=== PATIENT | male | born 1940 | race African-American/Black ===

== ENCOUNTER 2017-04-19 07:02 | Day surgery (SDC) | payer OTHER ==
[~2017-04-19] VITALS: Ht 180.3 cm; Wt 86.2 kg
[2017-04-19] MEDS ORDERED: GENTAMICIN/NS IRRIGATION 500 ML IR ONE (08:01)
[2017-04-19] MEDS ORDERED: ALLO300T2 PO (08:14)
[2017-04-19] MEDS ORDERED: APIX2.5T PO (08:14)
[2017-04-19] MEDS ORDERED: AZEL137S7 NS (08:14)
[2017-04-19] MEDS ORDERED: ASPI-1159 PO (08:14)
[2017-04-19] MEDS ORDERED: HYDR-4134 PO (08:14)
[2017-04-19] MEDS ORDERED: METF850T2 PO (08:14)
[2017-04-19] MEDS ORDERED: FURO80TA3 PO (08:14)
[2017-04-19] MEDS ORDERED: ATROV IH (08:14)
[2017-04-19] MEDS ORDERED: MONT10TA24 PO (08:14)
[2017-04-19] MEDS ORDERED: MIDAZOLAM HCL 2 MG/2 ML VIAL ONE (09:25)
[2017-04-19] MEDS ORDERED: FENTANYL CITRATE/PF 50MCG/ML 2ML VIAL ONE (09:25)
[2017-04-19] MEDS ORDERED: LIDOCAINE HCL 1% 20ML VIAL (Pyxis) INJ ONE (09:47)
[2017-04-19] MEDS ORDERED: DEXAMETHASONE 4MG/ML 1ML VIAL ONE (09:47)
[2017-04-19] MEDS ORDERED: PROPOFOL 200MG/20ML VIAL IV ONE (09:47)
[2017-04-19] MEDS ORDERED: CEFAZOLIN SODIUM 1000MG/VIAL ONE (09:48)
[2017-04-19] MEDS ORDERED: SODIUM CHLORIDE 0.9% 10ML VIAL ONE (09:48)
[2017-04-19] MEDS ORDERED: ONDANSETRON HCL 4MG/2ML VIAL ONE (09:48)
[2017-04-19] MEDS ORDERED: GENTAMICIN SULF 40MG/ML 2ML VIAL ONE (09:54)
== END 2017-04-19 14:30 | disposition home or self-care (01) ==
LOC: CCL 07:02
PROVIDERS: ATTEND Thoracic Surgery (Cardiothoracic Vascular Surgery)
DX: Z45.010 Encounter for checking and testing of cardiac pacemaker pulse generator [battery] (principal); I48.91 Unspecified atrial fibrillation; M10.9 Gout, unspecified; E11.9 Type 2 diabetes mellitus without complications; I10 Essential (primary) hypertension; E78.4 Other hyperlipidemia; Z86.73 Personal history of transient ischemic attack (TIA), and cerebral infarction without residual deficits; Z79.899 Other long term (current) drug therapy
CPT/HCPCS: 33222; 33227; 82962; A4216; C1786; J0690; J1100; J2250; J2405; J3010; J3490; J7040; 33228; J1580; J2704

== ENCOUNTER 2017-06-23 05:39 | Day surgery (SDC) | payer OTHER ==
[~2017-06-23] VITALS: Ht 181.6 cm; Wt 83.9 kg
[~2017-06-23 05:39] MED LIST: ALLO300T2 PO; APIX2.5T PO; ASPI-1159 PO; ATROV IH; AZEL137S7 NS; FURO80TA3 PO; HYDR-4134 PO; METF850T2 PO; MONT10TA24 PO
[2017-06-23] MEDS ORDERED: LACTATED RINGERS 1,000 ML IV SCH (06:25)
[2017-06-23] MEDS ORDERED: BUPIVACAINE HCL 0.5% (5MG/ML) 50ML ONE (06:26)
[2017-06-23] MEDS ORDERED: SKIN ADHESIVE 0.7 GM EA TOP ONE (06:26)
[2017-06-23] MEDS ORDERED: ROCURONIUM BROMIDE 10MG/ML VIAL 5ML IV ONE (07:37)
[2017-06-23] MEDS ORDERED: MEPERIDINE HCL/PF 25MG/ML CPJ IV PRN (08:00)
[2017-06-23] MEDS ORDERED: HYDROMORPHONE HCL/PF 2MG/ML CPJ IV PRN (08:00)
[2017-06-23] MEDS ORDERED: ONDANSETRON HCL 4MG/2ML VIAL IV PRN (08:00)
[2017-06-23] MEDS ORDERED: LABETALOL 5MG/ML SYR 20 MG/4 ML SYRINGE IV PRN (08:00)
[2017-06-23] MEDS ORDERED: DEXAMETHASONE 4MG/ML 1ML VIAL ONE (08:47)
[2017-06-23] MEDS ORDERED: CEFAZOLIN SODIUM 1000MG/VIAL ONE (08:47)
[2017-06-23] MEDS ORDERED: NEOSTIGMINE METHYLSULFATE 1MG/ML 10 ML VIAL ONE (08:50)
[2017-06-23] MEDS ORDERED: GLYCOPYRROLATE 0.2 MG/ML 2ML VIAL ONE ×2 (08:50→08:51)
[2017-06-23] MEDS ORDERED: HEPARIN 1000 UNITS/ML 10ML ONE (08:50)
== END 2017-06-23 11:55 | disposition home or self-care (01) ==
LOC: OR 05:39
PROVIDERS: ATTEND Surgery
DX: K40.90 Unilateral inguinal hernia, without obstruction or gangrene, not specified as recurrent (principal); Z86.73 Personal history of transient ischemic attack (TIA), and cerebral infarction without residual deficits; I48.91 Unspecified atrial fibrillation; I10 Essential (primary) hypertension; E11.9 Type 2 diabetes mellitus without complications; Z79.899 Other long term (current) drug therapy; Z79.82 Long term (current) use of aspirin
CPT/HCPCS: 49650; 82962; C1781; G0168; J0690; J1100; J1644; J2710; J3490; J7120; S2900

== ENCOUNTER 2018-04-04 11:14 | Emergency (ER) | payer OTHER ==
[~2018-04-04] VITALS: Ht 180.3 cm; Wt 86.0 kg
[~2018-04-04 11:14] MED LIST changes: +METF-415 PO; -METF850T2 PO
[2018-04-04] MEDS ORDERED: KETOROLAC 30MG/ML VIAL IV STA (12:05)
[2018-04-04 12:43] LABS: CHLORIDE 107 mEq/L (98-107)
[2018-04-04 12:48] LABS: BASOPHILS % 0.2 % (0.0-2.0); EOSINOPHILS % 0.6 % (0.0-5.0); HEMATOCRIT. 39.7 % (42.0-52.0); HEMOGLOBIN. 13.1 g/dL (14.0-18.0); LYMPHOCYTES % 9.6 % (20.0-50.0); MEAN CORPUSCULAR HEMOGLOBIN 32.3 pg (28.0-32.0); MEAN PLATELET VOLUME 9.4 fl (7.4-10.4); MONOCYTES % 5.4 % (2.0-8.0); NEUTROPHILS % 84.2 % (40.0-76.0); PLATELET 148 x1000/uL (130-400); RED BLOOD CELL COUNT 4.05 mill/uL (4.7-6.1); RED CELL DISTRIBUTION WIDTH 14.6 % (11.6-14.6)
[2018-04-04 14:35] VITALS: BP 152/104
== END 2018-04-04 14:35 | disposition home or self-care (01) ==
LOC: ER 12:11
DX: I10 Essential (primary) hypertension (principal); R51 Headache; R94.31 Abnormal electrocardiogram [ECG] [EKG]; E11.9 Type 2 diabetes mellitus without complications; Z79.84 Long term (current) use of oral hypoglycemic drugs; Z86.73 Personal history of transient ischemic attack (TIA), and cerebral infarction without residual deficits; Z98.890 Other specified postprocedural states
CPT/HCPCS: 36415; 70450; 80053; 85025; 93005; 96374; 99284; J1885

== ENCOUNTER 2018-11-07 14:02 | Emergency (ER) | payer OTHER ==
[~2018-11-07] VITALS: Ht 177.8 cm; Wt 86.0 kg
[~2018-11-07 14:02] MED LIST changes: -ASPI-1159 PO; +ASPI-1393 PO
[2018-11-07] MEDS ORDERED: MELOXICAM 7.5MG TABLET PO SCH (14:30)
[2018-11-07 17:40] VITALS: BP 122/76
== END 2018-11-07 17:35 | disposition home or self-care (01) ==
LOC: ER 14:02
DX: M16.12 Unilateral primary osteoarthritis, left hip (principal); M25.552 Pain in left hip; M10.9 Gout, unspecified; E11.9 Type 2 diabetes mellitus without complications; I10 Essential (primary) hypertension; Z86.73 Personal history of transient ischemic attack (TIA), and cerebral infarction without residual deficits; Z98.890 Other specified postprocedural states
CPT/HCPCS: 73502; 93971; 99284

== ENCOUNTER 2019-04-07 22:22 | Inpatient (IN) | payer OTHER ==
[~2019-04-07] VITALS: Ht 180.3 cm; Wt 91.4 kg
[2019-04-07 22:50] LABS: BASOPHILS % 0.6 % (0.0-2.0); EOSINOPHILS % 3.7 % (0.0-5.0); HEMATOCRIT. 42.8 % (42.0-52.0); HEMOGLOBIN. 14.3 g/dL (14.0-18.0); LYMPHOCYTES % 20.2 % (20.0-50.0); MEAN CORPUSCULAR HEMOGLOBIN 33.3 pg (28.0-32.0); MEAN CORPUSCULAR VOLUME 99.9 fL (80.0-94.0); MEAN PLATELET VOLUME 10.3 fl (7.4-10.4); MONOCYTES % 10.2 % (2.0-8.0); NEUTROPHILS % 65.3 % (40.0-76.0); PLATELET 162 x1000/uL (130-400); RED BLOOD CELL COUNT 4.29 mill/uL (4.7-6.1); RED CELL DISTRIBUTION WIDTH 15.2 % (11.6-14.6)
[2019-04-07 22:51] LABS: CHLORIDE 107 mEq/L (98-107)
[2019-04-07 22:52] LABS: INR 1.1; PROTHROMBIN TIME 10.9 sec (9.6-11.0)
[2019-04-07 22:55] LABS: ETHANOL BLOOD < 10 mg/dL
[2019-04-07] MEDS ORDERED: IOHEXOL-350 100 ML BOTTLE ONE (23:16)
[2019-04-08] MEDS ORDERED: IOHEXOL-350 100 ML BOTTLE ONE (01:30)
[2019-04-08] MEDS ORDERED: ASPIRIN 325MG TABLET PO ONE (04:00)
[2019-04-08 05:31] LABS: CLARITY URINE CLEAR (CLEAR); COLOR URINE YELLOW (YELLOW); KETONES URINE NEGATIVE (NEGATIVE); LEUKOCYTE ESTERASE URINE NEGATIVE (NEGATIVE); NITRITE URINE NEGATIVE (NEGATIVE); OCCULT BLOOD URINE NEGATIVE (NEGATIVE); PROTEIN URINE 2+ (NEGATIVE); UROBILINOGEN URINE 0.2 E.U./dL (0.2-1.0)
[2019-04-08 06:00] LABS: *AMPHETAMINES SCREEN URINE NEGATIVE (NEGATIVE); *BARBITURATES SCREEN URINE NEGATIVE (NEGATIVE); *BENZODIAZEPINES SCREEN URINE NEGATIVE (NEGATIVE); *COCAINE SCREEN URINE NEGATIVE (NEGATIVE); METHADONE URINE SCREEN NEGATIVE (NEGATIVE); OPIATES URINE SCREEN NEGATIVE (NEGATIVE); PHENCYCLIDINE URINE SCREEN NEGATIVE (NEGATIVE)
[2019-04-08 06:01] LABS: CANNABINOID URINE SCREEN NEGATIVE (NEGATIVE)
[2019-04-08 09:00] VITALS: BP 142/95
[2019-04-08 10:06] VITALS: BP 142/95
[2019-04-08] MEDS ORDERED: PNEUMOCOCCAL 23-VAL P-SAC VAC 0.5 ML IM ONE (10:45)
[2019-04-08] MEDS ORDERED: DOCUSATE SODIUM 100MG CAPSULE PO PRN (11:15)
[2019-04-08] MEDS ORDERED: ACETAMINOPHEN 325MG TABLET PO PRN (11:15)
[2019-04-08] MEDS ORDERED: CLONIDINE 0.1MG TABLET PO PRN (11:15)
[2019-04-08] MEDS ORDERED: LORAZEPAM 0.5MG TABLET PO PRN (11:15)
[2019-04-08] MEDS ORDERED: DIPHENHYDRAMINE 50MG/ML VIAL IV PRN (11:15)
[2019-04-08] MEDS ORDERED: MAGNESIUM/ALUMINUM HYDROXIDE/SIMETHICONE 30ML UDC PO PRN (11:15)
[2019-04-08] MEDS ORDERED: GUAIFENESIN 200MG/10ML SUGAR FREE UDC PO PRN (11:15)
[2019-04-08] MEDS ORDERED: IPRATROPIUM/ALBUTEROL 0.5-3(2.5)MG/3ML NEB NEB PRN (11:15)
[2019-04-08] MEDS ORDERED: ACETAMINOPHEN 650MG SUPP PR PRN (11:15)
[2019-04-08] MEDS ORDERED: HYDROCODONE/ACETAMINOPHEN 5/325MG TABLET PO PRN (11:15)
[2019-04-08] MEDS ORDERED: NA PHOS,M-B/NA PHOS,DI-BA ENEMA 118ML PR PRN (11:15)
[2019-04-08] MEDS ORDERED: ONDANSETRON HCL 4MG/2ML INJ IV PRN (11:15)
[2019-04-08 11:25] LABS: BG BASE EXCESS 4.1 mmol/L (-2.0-2.0); BG CARBOXYHEMOGLOBIN 0.8 % (0.5-1.5); BG HCO3 ACT 29.8 mmol/L (22.0-26.0); BG METHEMOGLOBIN 0.3 % (0.0-1.5); BG OXYGEN SATURATION 89.9 % (92.0-98.5); BG OXYHEMOGLOBIN 88.9 % (94.0-97.0); BG PCO2 48.7 mmHg (35.0-45.0); BG PH 7.404 (7.350-7.450); BG PO2 59.6 mmHg (75.0-100.0); BG SAMPLE SITE RIGHT RADIAL; BG TOTAL HEMOGLOBIN 13.8 g/dL (12.0-18.0); BG VENT MODE ROOM AIR
[2019-04-08 12:00] VITALS: BP 123/85
[2019-04-08 12:56] LABS: MEAN CORPUSCULAR HEMOGLOBIN 33.2 pg (28.0-32.0); PLATELET 138 x1000/uL (130-400); RED CELL DISTRIBUTION WIDTH 15.1 % (11.6-14.6)
[2019-04-08 12:59] LABS: CHLORIDE 111 mEq/L (98-107)
[2019-04-08] MEDS ORDERED: DEXTROSE 50% WATER 50ML SYRINGE IV PRN (14:45)
[2019-04-08 16:00] VITALS: BP 153/98
[2019-04-08] MEDS: HYDRALAZINE HCL 25MG TABLET PO SCH (16:36)
[2019-04-08] MEDS: ALLOPURINOL 300 MG TABLET PO SCH (16:36)
[2019-04-08] MEDS: FUROSEMIDE 40MG TABLET PO SCH (16:37)
[2019-04-08 16:46] LABS: CREATINE KINASE MB FRACTION 2.3 ng/mL (0.5-3.6)
[2019-04-08] MEDS: BLOOD SUGAR DIAGNOSTIC STRIP TEST SCH ×2 (17:47→20:59)
[2019-04-08] MEDS: APIXABAN 2.5 MG TABLET PO SCH (17:49)
[2019-04-08] MEDS: INSULIN LISPRO 100 UNITS/ML SUBCUT SCH ×2 (17:50→20:59)
[2019-04-08 17:58] LABS: *AMPHETAMINES SCREEN URINE NEGATIVE (NEGATIVE); METHADONE URINE SCREEN NEGATIVE (NEGATIVE); OPIATES URINE SCREEN NEGATIVE (NEGATIVE); PHENCYCLIDINE URINE SCREEN NEGATIVE (NEGATIVE)
[2019-04-08 17:59] LABS: *BARBITURATES SCREEN URINE NEGATIVE (NEGATIVE); *BENZODIAZEPINES SCREEN URINE NEGATIVE (NEGATIVE); *COCAINE SCREEN URINE NEGATIVE (NEGATIVE); CANNABINOID URINE SCREEN NEGATIVE (NEGATIVE)
[2019-04-08 18:05] LABS: CLARITY URINE CLEAR (CLEAR); COLOR URINE YELLOW (YELLOW); KETONES URINE NEGATIVE (NEGATIVE); LEUKOCYTE ESTERASE URINE NEGATIVE (NEGATIVE); NITRITE URINE NEGATIVE (NEGATIVE); OCCULT BLOOD URINE NEGATIVE (NEGATIVE); PH URINE 5.5 (4.5-8.0); PROTEIN URINE 3+ (NEGATIVE); SPECIFIC GRAVITY URINE 1.045 (1.005-1.030); UROBILINOGEN URINE 0.2 E.U./dL (0.2-1.0)
[2019-04-08] MEDS: METFORMIN HCL 850MG TABLET PO SCH (18:36)
[2019-04-08 20:00] VITALS: BP 140/84
[2019-04-08] MEDS ORDERED: ATORVASTATIN CALCIUM 20MG TABLET PO SCH (21:00)
[2019-04-09] VITALS (8 sets, daily range): BP systolic 144–172; BP diastolic 11–125
[2019-04-09 00:23] LABS: CREATINE KINASE MB FRACTION 2.2 ng/mL (0.5-3.6)
[2019-04-09] MEDS: HYDRALAZINE HCL 25MG TABLET PO SCH ×3 (00:27→14:00)
[2019-04-09] MEDS: INSULIN LISPRO 100 UNITS/ML SUBCUT SCH ×2 (06:37→12:50)
[2019-04-09] MEDS: BLOOD SUGAR DIAGNOSTIC STRIP TEST SCH ×2 (06:37→12:20)
[2019-04-09 07:02] LABS: BASOPHILS % 0.5 % (0.0-2.0); EOSINOPHILS % 4.4 % (0.0-5.0); HEMATOCRIT. 41.2 % (42.0-52.0); HEMOGLOBIN. 13.4 g/dL (14.0-18.0); LYMPHOCYTES % 15.2 % (20.0-50.0); MEAN CORPUSCULAR VOLUME 101.1 fL (80.0-94.0); MEAN PLATELET VOLUME 10.4 fl (7.4-10.4); MONOCYTES % 8.2 % (2.0-8.0); NEUTROPHILS % 71.7 % (40.0-76.0); PLATELET 136 x1000/uL (130-400); RED BLOOD CELL COUNT 4.08 mill/uL (4.7-6.1); RED CELL DISTRIBUTION WIDTH 15.1 % (11.6-14.6)
[2019-04-09 07:16] LABS: CHLORIDE 109 mEq/L (98-107)
[2019-04-09 07:26] LABS: LDL CHOLESTEROL 49 mg/dL (5-100)
[2019-04-09 07:28] LABS: T4 FREE 0.94 ng/dL (0.76-1.46)
[2019-04-09 07:30] LABS: HDL CHOLESTEROL 44 mg/dL (40-59)
[2019-04-09] MEDS ORDERED: ASPIRIN 81MG EC TABLET PO SCH (09:00)
[2019-04-09] MEDS: METFORMIN HCL 850MG TABLET PO SCH (10:03)
[2019-04-09] MEDS: ALLOPURINOL 300 MG TABLET PO SCH (10:03)
[2019-04-09] MEDS: FUROSEMIDE 40MG TABLET PO SCH (10:03)
[2019-04-09] MEDS: APIXABAN 2.5 MG TABLET PO SCH (10:03)
== END 2019-04-09 17:30 | disposition home health service (06) | DRG 69 ==
LOC: ER 22:22 → 6WST 04-08 → EDBEDREQ 04-08 00:15 → EDBEDREQTM 04-08 00:15 → EDBEDREQSVC 04-08 00:15 → ENRESERV 04-08 07:20
PROVIDERS: ADMIT Internal Medicine; ATTEND Internal Medicine
DX: G45.9 Transient cerebral ischemic attack, unspecified (principal); G93.40 Encephalopathy, unspecified; N39.0 Urinary tract infection, site not specified; I42.9 Cardiomyopathy, unspecified; I48.19 Other persistent atrial fibrillation; I69.354 Hemiplegia and hemiparesis following cerebral infarction affecting left non-dominant side; D64.9 Anemia, unspecified; G40.909 Epilepsy, unspecified, not intractable, without status epilepticus; Z95.0 Presence of cardiac pacemaker; I49.5 Sick sinus syndrome; E11.9 Type 2 diabetes mellitus without complications; E78.5 Hyperlipidemia, unspecified; J44.9 Chronic obstructive pulmonary disease, unspecified; I11.9 Hypertensive heart disease without heart failure; E86.0 Dehydration; R09.02 Hypoxemia; M10.9 Gout, unspecified; R29.810 Facial weakness; Z79.01 Long term (current) use of anticoagulants; Z79.82 Long term (current) use of aspirin; Z79.899 Other long term (current) drug therapy
CPT/HCPCS: 36415; 36600; 70496; 70498; 71045; 80048; 80061; 80305; 80320; 81003; 82375; 82550; 82553; 82805; 82962; 83036; 84439; 84443; 84484; 84550; 85027; 85379; 87077; 87186; 90732; 93005; 93306; 93970; 99285; Q9967; G0480

== ENCOUNTER 2019-06-12 09:19 | Inpatient (IN) | payer OTHER ==
[~2019-06-12] VITALS: Ht 185.4 cm; Wt 90.7 kg
[~2019-06-12 09:19] MED LIST changes: -ASPI-1393 PO; +ASPI-1497 PO; -MONT10TA24 PO; +MONT10TA26 PO
[2019-06-12] MEDS ORDERED: LORAZEPAM 2MG/ML CPJ IM STA (10:19)
[2019-06-12] MEDS ORDERED: LORAZEPAM 2MG/ML CPJ ONE (10:23)
[2019-06-12 10:35] LABS: BASOPHILS % 0.5 % (0.0-2.0); EOSINOPHILS % 2.9 % (0.0-5.0); HEMATOCRIT. 48.6 % (42.0-52.0); HEMOGLOBIN. 15.3 g/dL (14.0-18.0); LYMPHOCYTES % 28.6 % (20.0-50.0); MEAN CORPUSCULAR HEMOGLOBIN 32.2 pg (28.0-32.0); MEAN CORPUSCULAR VOLUME 102.3 fL (80.0-94.0); MEAN PLATELET VOLUME 10.1 fl (7.4-10.4); MONOCYTES % 10.9 % (2.0-8.0); NEUTROPHILS % 57.1 % (40.0-76.0); PLATELET 147 x1000/uL (130-400); RED BLOOD CELL COUNT 4.75 mill/uL (4.7-6.1); RED CELL DISTRIBUTION WIDTH 15.2 % (11.6-14.6)
[2019-06-12 10:39] LABS: CHLORIDE 109 mEq/L (98-107)
[2019-06-12 10:40] LABS: INR 1.2; PROTHROMBIN TIME 12.1 sec (9.6-11.0)
[2019-06-12 10:43] LABS: ETHANOL BLOOD < 10 mg/dL
[2019-06-12 10:46] LABS: LDL CHOLESTEROL 68 mg/dL (5-100)
[2019-06-12] MEDS ORDERED: LORAZEPAM 2MG/ML CPJ IV SCH ×2 (13:15→13:45)
[2019-06-12 13:50] VITALS: BP 157/99
[2019-06-12 14:00] VITALS: BP 143/98
[2019-06-12] MEDS ORDERED: IPRATROPIUM/ALBUTEROL 0.5-3(2.5)MG/3ML NEB HHN PRN (14:00)
[2019-06-12] MEDS ORDERED: ONDANSETRON HCL 4MG/2ML INJ IV PRN (14:00)
[2019-06-12] MEDS ORDERED: CLONIDINE 0.1MG TABLET PO PRN (14:00)
[2019-06-12] MEDS: ENOXAPARIN 40MG/0.4ML SYR SUBCUT SCH ×2 (14:00→16:35)
[2019-06-12 14:19] LABS: BG BASE EXCESS 0.1 mmol/L (-2.0-2.0); BG CARBOXYHEMOGLOBIN 1.5 % (0.5-1.5); BG FRACTION INSPIRED OXYGEN 32; BG HCO3 ACT 27.4 mmol/L (22.0-26.0); BG OXYGEN SATURATION 90.9 % (92.0-98.5); BG OXYHEMOGLOBIN 89.5 % (94.0-97.0); BG PCO2 54.7 mmHg (35.0-45.0); BG PH 7.317 (7.350-7.450); BG PO2 65.7 mmHg (75.0-100.0); BG SAMPLE SITE RIGHT RADIAL; BG TOTAL HEMOGLOBIN 14.7 g/dL (12.0-18.0); BG VENT MODE NASAL CANNULA
[2019-06-12] MEDS ORDERED: IOHEXOL-350 100 ML BOTTLE ONE (14:54)
[2019-06-12 16:00] VITALS: BP 163/108
[2019-06-12] MEDS ORDERED: LEVE10006 MT (16:53)
[2019-06-12] MEDS ORDERED: ATOR20TA65 MT (16:53)
[2019-06-12] MEDS: MORPHINE SULFATE 2 MG/ML CPJ (NOT FOR IM USE) IV PRN ×2 (17:18→22:53)
[2019-06-12] MEDS: HYDRALAZINE 20MG/ML VIAL IV PRN (17:37)
[2019-06-12 17:38] VITALS: BP 171/152
[2019-06-12] MEDS: LEVETIRACETAM 500MG PREMIX 100 ML IV SCH ×2 (17:39→23:24)
[2019-06-12] MEDS ORDERED: DEXTROSE 50% WATER 50ML SYRINGE IV PRN (18:15)
[2019-06-12 20:00] VITALS: BP 149/72
[2019-06-12] MEDS: INSULIN LISPRO 100 UNITS/ML SUBCUT SCH (21:00)
[2019-06-12] MEDS: BLOOD SUGAR DIAGNOSTIC STRIP TEST SCH (21:39)
[2019-06-12 22:00] VITALS: BP 149/93
[2019-06-12] MEDS: APIXABAN 2.5 MG TABLET PO SCH (22:27)
[2019-06-13] VITALS (11 sets, daily range): BP systolic 122–165; BP diastolic 78–102
[2019-06-13 00:01] LABS: CREATINE KINASE MB FRACTION 4.9 ng/mL (0.5-3.6)
[2019-06-13] MEDS ORDERED: HALOPERIDOL LACTATE 5MG/ML VIAL IM STA (00:49)
[2019-06-13 06:25] LABS: HEMATOCRIT. 41.6 % (42.0-52.0); HEMOGLOBIN. 13.6 g/dL (14.0-18.0); MEAN CORPUSCULAR HEMOGLOBIN 32.7 pg (28.0-32.0); MEAN CORPUSCULAR VOLUME 100.1 fL (80.0-94.0); MEAN PLATELET VOLUME 9.4 fl (7.4-10.4); PLATELET 103 x1000/uL (130-400); RED BLOOD CELL COUNT 4.15 mill/uL (4.7-6.1); RED CELL DISTRIBUTION WIDTH 14.7 % (11.6-14.6)
[2019-06-13 06:44] LABS: CREATINE KINASE MB FRACTION 8.5 ng/mL (0.5-3.6); T4 FREE 1.38 ng/dL (0.76-1.46)
[2019-06-13] MEDS: BLOOD SUGAR DIAGNOSTIC STRIP TEST SCH ×4 (07:19→21:00)
[2019-06-13] MEDS: INSULIN LISPRO 100 UNITS/ML SUBCUT SCH ×4 (07:20→21:00)
[2019-06-13] MEDS: LEVETIRACETAM 500MG PREMIX 100 ML IV SCH ×2 (08:01→23:13)
[2019-06-13] MEDS: APIXABAN 2.5 MG TABLET PO SCH ×2 (09:00→17:00)
[2019-06-13] MEDS: HALOPERIDOL LACTATE 5MG/ML VIAL IM PRN (14:00)
[2019-06-13 14:01] LABS: PLATELET ESTIMATE SLIGHTLY DECREASED
[2019-06-13] MEDS ORDERED: LORAZEPAM 2MG/ML CPJ IV SCH (14:15)
[2019-06-13 15:36] LABS: CREATINE KINASE MB FRACTION 13.6 ng/mL (0.5-3.6)
[2019-06-13] MEDS: AMLODIPINE 2.5MG TABLET PO SCH (23:14)
[2019-06-14] VITALS (12 sets, daily range): BP systolic 111–168; BP diastolic 73–96
[2019-06-14] MEDS: HYDRALAZINE 20MG/ML VIAL IV PRN (01:24)
[2019-06-14] MEDS: BLOOD SUGAR DIAGNOSTIC STRIP TEST SCH ×4 (06:50→21:17)
[2019-06-14] MEDS: INSULIN LISPRO 100 UNITS/ML SUBCUT SCH ×4 (07:20→21:00)
[2019-06-14 07:41] LABS: CHLORIDE 110 mEq/L (98-107)
[2019-06-14 07:45] LABS: HEMOGLOBIN. 13.5 g/dL (14.0-18.0); MEAN CORPUSCULAR HEMOGLOBIN 32.2 pg (28.0-32.0); MEAN CORPUSCULAR VOLUME 99.8 fL (80.0-94.0); MEAN PLATELET VOLUME 10.6 fl (7.4-10.4); PLATELET 109 x1000/uL (130-400); RED BLOOD CELL COUNT 4.21 mill/uL (4.7-6.1); RED CELL DISTRIBUTION WIDTH 14.9 % (11.6-14.6)
[2019-06-14 07:54] LABS: CREATINE KINASE MB FRACTION 6.3 ng/mL (0.5-3.6)
[2019-06-14] MEDS: APIXABAN 2.5 MG TABLET PO SCH (08:11)
[2019-06-14] MEDS: AMLODIPINE 2.5MG TABLET PO SCH ×2 (08:11→21:00)
[2019-06-14] MEDS: LEVETIRACETAM 500MG PREMIX 100 ML IV SCH (08:12)
[2019-06-14 19:06] LABS: PLATELET ESTIMATE DECREASED
[2019-06-14] MEDS: LEVETIRACETAM 500MG TABLET PO SCH (21:24)
[2019-06-15] VITALS (12 sets, daily range): BP systolic 109–169; BP diastolic 66–97
[2019-06-15] MEDS: HYDROCODONE/ACETAMINOPHEN 5/325MG TABLET PO PRN (00:06)
[2019-06-15] MEDS: HALOPERIDOL LACTATE 5MG/ML VIAL IM PRN (02:21)
[2019-06-15 06:23] LABS: CREATINE KINASE MB FRACTION 5.7 ng/mL (0.5-3.6)
[2019-06-15] MEDS: INSULIN LISPRO 100 UNITS/ML SUBCUT SCH ×4 (07:20→22:38)
[2019-06-15] MEDS: BLOOD SUGAR DIAGNOSTIC STRIP TEST SCH ×4 (07:29→22:20)
[2019-06-15] MEDS: LEVETIRACETAM 500MG TABLET PO SCH ×2 (08:51→22:34)
[2019-06-15] MEDS: AMLODIPINE 2.5MG TABLET PO SCH (08:51)
[2019-06-15] MEDS: NITROGLYCERIN OINT 1GM/INCH UDPKT TD SCH ×2 (16:17→22:35)
[2019-06-15] MEDS: AMLODIPINE 5MG TABLET PO SCH (22:34)
[2019-06-16] VITALS (10 sets, daily range): BP systolic 104–162; BP diastolic 56–104
[2019-06-16] MEDS: HYDROCODONE/ACETAMINOPHEN 5/325MG TABLET PO PRN ×2 (00:24→21:16)
[2019-06-16] MEDS: NITROGLYCERIN OINT 1GM/INCH UDPKT TD SCH ×3 (06:36→21:16)
[2019-06-16 06:45] LABS: BASOPHILS % 0.5 % (0.0-2.0); EOSINOPHILS % 5.7 % (0.0-5.0); HEMATOCRIT. 38.6 % (42.0-52.0); HEMOGLOBIN. 12.9 g/dL (14.0-18.0); LYMPHOCYTES % 7.6 % (20.0-50.0); MEAN CORPUSCULAR HEMOGLOBIN 32.7 pg (28.0-32.0); MEAN CORPUSCULAR VOLUME 98.4 fL (80.0-94.0); MEAN PLATELET VOLUME 10.4 fl (7.4-10.4); MONOCYTES % 10.8 % (2.0-8.0); NEUTROPHILS % 75.4 % (40.0-76.0); PLATELET 116 x1000/uL (130-400); RED BLOOD CELL COUNT 3.93 mill/uL (4.7-6.1); RED CELL DISTRIBUTION WIDTH 14.3 % (11.6-14.6)
[2019-06-16] MEDS: BLOOD SUGAR DIAGNOSTIC STRIP TEST SCH ×4 (06:46→21:15)
[2019-06-16] MEDS: INSULIN LISPRO 100 UNITS/ML SUBCUT SCH ×4 (06:47→21:15)
[2019-06-16 07:01] LABS: CHLORIDE 102 mEq/L (98-107)
[2019-06-16 07:16] LABS: CREATINE KINASE 449 IU/L (39-308)
[2019-06-16 07:19] LABS: CREATINE KINASE MB FRACTION 5.1 ng/mL (0.5-3.6)
[2019-06-16] MEDS: LEVETIRACETAM 500MG TABLET PO SCH ×2 (09:22→21:15)
[2019-06-16] MEDS ORDERED: NICARDIPINE 100MCG/ML 10ML VIAL (CATH LAB) IV ONE (10:21)
[2019-06-16] MEDS ORDERED: NITROGLYCERIN 50MCG/ML 10ML VIAL (CATH LAB) IV ONE (10:21)
[2019-06-16] MEDS ORDERED: HEPARIN SODIUM 1,000 UNIT/1ML VIAL IV ONE (10:21)
[2019-06-16] MEDS: SODIUM CHLORIDE 0.45% 1,000 ML IV SCH (11:54)
[2019-06-16] MEDS: AMLODIPINE 5MG TABLET PO SCH ×2 (11:54→21:15)
[2019-06-16] MEDS ORDERED: LIDOCAINE HCL 1% 20ML VIAL (Pyxis) INJ ONE (12:52)
[2019-06-16] MEDS ORDERED: IODIXANOL 320MG/ML 100 ML BOTTLE IV ONE (12:52)
[2019-06-16] MEDS ORDERED: MIDAZOLAM HCL 2 MG/2 ML VIAL ONE (12:53)
[2019-06-16] MEDS ORDERED: FENTANYL CITRATE/PF 50MCG/ML 2ML VIAL ONE (12:53)
[2019-06-16] MEDS ORDERED: ONDANSETRON HCL 4MG/2ML INJ IV PRN (14:30)
[2019-06-16] MEDS ORDERED: ACETAMINOPHEN 325MG TABLET PO PRN (14:30)
[2019-06-16] MEDS ORDERED: ATROPINE SULFATE 1MG/10ML SYR IV PRN (14:30)
[2019-06-17] MEDS: MORPHINE SULFATE 2 MG/ML CPJ (NOT FOR IM USE) IV PRN (00:13)
[2019-06-17] MEDS: HYDROCODONE/ACETAMINOPHEN 5/325MG TABLET PO PRN ×2 (03:05→11:14)
[2019-06-17 04:00] VITALS: BP 105/71
[2019-06-17] MEDS: INSULIN LISPRO 100 UNITS/ML SUBCUT SCH ×4 (06:03→21:00)
[2019-06-17] MEDS: NITROGLYCERIN OINT 1GM/INCH UDPKT TD SCH (06:03)
[2019-06-17] MEDS: BLOOD SUGAR DIAGNOSTIC STRIP TEST SCH ×4 (06:03→21:18)
[2019-06-17] MEDS: SODIUM CHLORIDE 0.45% 1,000 ML IV SCH (07:00)
[2019-06-17 07:42] LABS: BASOPHILS % 0.6 % (0.0-2.0); EOSINOPHILS % 7.5 % (0.0-5.0); HEMATOCRIT. 37.7 % (42.0-52.0); HEMOGLOBIN. 12.3 g/dL (14.0-18.0); LYMPHOCYTES % 7.6 % (20.0-50.0); MEAN CORPUSCULAR HEMOGLOBIN 32.4 pg (28.0-32.0); MEAN PLATELET VOLUME 10.4 fl (7.4-10.4); MONOCYTES % 11.8 % (2.0-8.0); NEUTROPHILS % 72.5 % (40.0-76.0); PLATELET 119 x1000/uL (130-400); RED BLOOD CELL COUNT 3.81 mill/uL (4.7-6.1); RED CELL DISTRIBUTION WIDTH 14.5 % (11.6-14.6)
[2019-06-17 07:48] LABS: CHLORIDE 104 mEq/L (98-107)
[2019-06-17 08:00] VITALS: BP 142/86
[2019-06-17] MEDS: AMLODIPINE 5MG TABLET PO SCH ×2 (08:50→20:29)
[2019-06-17] MEDS: LEVETIRACETAM 500MG TABLET PO SCH ×2 (08:50→20:29)
[2019-06-17 11:45] VITALS: BP 140/74
[2019-06-17] MEDS: APIXABAN 5 MG TABLET PO SCH ×2 (14:57→20:29)
[2019-06-17 16:00] VITALS: BP 138/72
[2019-06-17 20:00] VITALS: BP 141/91
[2019-06-17] MEDS: ACETAMINOPHEN 325MG TABLET PO PRN (22:34)
[2019-06-18] VITALS: BP 154/79
[2019-06-18 04:00] VITALS: BP 133/64
[2019-06-18] MEDS: BLOOD SUGAR DIAGNOSTIC STRIP TEST SCH ×4 (05:41→21:27)
[2019-06-18] MEDS: INSULIN LISPRO 100 UNITS/ML SUBCUT SCH ×4 (05:41→21:00)
[2019-06-18 07:09] LABS: CHLORIDE 105 mEq/L (98-107)
[2019-06-18 07:11] LABS: BASOPHILS % 0.7 % (0.0-2.0); EOSINOPHILS % 7.3 % (0.0-5.0); HEMATOCRIT. 39.8 % (42.0-52.0); LYMPHOCYTES % 9.4 % (20.0-50.0); MEAN CORPUSCULAR HEMOGLOBIN 32.4 pg (28.0-32.0); MEAN CORPUSCULAR VOLUME 99.1 fL (80.0-94.0); MEAN PLATELET VOLUME 9.5 fl (7.4-10.4); MONOCYTES % 11.7 % (2.0-8.0); NEUTROPHILS % 70.9 % (40.0-76.0); PLATELET 136 x1000/uL (130-400); RED BLOOD CELL COUNT 4.01 mill/uL (4.7-6.1); RED CELL DISTRIBUTION WIDTH 14.7 % (11.6-14.6)
[2019-06-18 08:00] VITALS: BP 138/91
[2019-06-18] MEDS: AMLODIPINE 5MG TABLET PO SCH ×2 (08:42→21:25)
[2019-06-18] MEDS: LEVETIRACETAM 500MG TABLET PO SCH ×2 (08:42→21:25)
[2019-06-18] MEDS: APIXABAN 5 MG TABLET PO SCH ×2 (08:42→16:47)
[2019-06-18 12:00] VITALS: BP 144/84
[2019-06-18 16:00] VITALS: BP 135/98
[2019-06-18 20:01] VITALS: BP 161/80
[2019-06-19] VITALS (7 sets, daily range): BP systolic 123–164; BP diastolic 86–99
[2019-06-19] MEDS: INSULIN LISPRO 100 UNITS/ML SUBCUT SCH ×4 (07:51→21:00)
[2019-06-19] MEDS: BLOOD SUGAR DIAGNOSTIC STRIP TEST SCH ×4 (07:51→21:10)
[2019-06-19] MEDS: LEVETIRACETAM 500MG TABLET PO SCH ×2 (08:43→21:10)
[2019-06-19] MEDS: AMLODIPINE 5MG TABLET PO SCH ×2 (08:43→21:10)
[2019-06-19] MEDS: APIXABAN 5 MG TABLET PO SCH ×2 (08:44→17:58)
[2019-06-20] VITALS: BP 146/87
[2019-06-20] MEDS: ACETAMINOPHEN 325MG TABLET PO PRN (00:10)
[2019-06-20 04:00] VITALS: BP 138/76
[2019-06-20 07:00] LABS: BASOPHILS % 0.6 % (0.0-2.0); EOSINOPHILS % 3.9 % (0.0-5.0); HEMATOCRIT. 40.7 % (42.0-52.0); HEMOGLOBIN. 13.2 g/dL (14.0-18.0); LYMPHOCYTES % 12.8 % (20.0-50.0); MEAN CORPUSCULAR HEMOGLOBIN 31.9 pg (28.0-32.0); MEAN CORPUSCULAR VOLUME 98.3 fL (80.0-94.0); MEAN PLATELET VOLUME 9.7 fl (7.4-10.4); MONOCYTES % 9.6 % (2.0-8.0); NEUTROPHILS % 73.1 % (40.0-76.0); PLATELET 182 x1000/uL (130-400); RED BLOOD CELL COUNT 4.14 mill/uL (4.7-6.1); RED CELL DISTRIBUTION WIDTH 14.5 % (11.6-14.6)
[2019-06-20 07:34] LABS: CHLORIDE 106 mEq/L (98-107)
[2019-06-20] MEDS: BLOOD SUGAR DIAGNOSTIC STRIP TEST SCH ×4 (07:40→21:52)
[2019-06-20] MEDS: INSULIN LISPRO 100 UNITS/ML SUBCUT SCH ×5 (07:53→21:00)
[2019-06-20 08:00] VITALS: BP 142/88
[2019-06-20] MEDS: LEVETIRACETAM 500MG TABLET PO SCH ×2 (10:00→21:51)
[2019-06-20] MEDS: APIXABAN 5 MG TABLET PO SCH ×2 (10:00→19:16)
[2019-06-20] MEDS: AMLODIPINE 5MG TABLET PO SCH ×2 (10:01→21:51)
[2019-06-20 12:00] VITALS: BP 138/79
[2019-06-20 16:00] VITALS: BP 133/88
[2019-06-20 20:00] VITALS: BP 131/81
[2019-06-20 20:20] LABS: BG BASE EXCESS -3.2 mmol/L (-2.0-2.0); BG CARBOXYHEMOGLOBIN 0.7 % (0.5-1.5); BG FRACTION INSPIRED OXYGEN 21; BG HCO3 ACT 21.2 mmol/L (22.0-26.0); BG METHEMOGLOBIN 0.4 % (0.0-1.5); BG OXYGEN SATURATION 92.9 % (92.0-98.5); BG OXYHEMOGLOBIN 91.9 % (94.0-97.0); BG PH 7.387 (7.350-7.450); BG PO2 68.4 mmHg (75.0-100.0); BG SAMPLE SITE LEFT RADIAL; BG TOTAL HEMOGLOBIN 13.5 g/dL (12.0-18.0); BG VENT MODE ROOM AIR
[2019-06-20] MEDS ORDERED: NAPR-681 PO (20:44)
[2019-06-20] MEDS ORDERED: GABA-531 PO (20:44)
[2019-06-20] MEDS ORDERED: TAMS-11 PO (20:44)
[2019-06-20] MEDS ORDERED: FAMO-135 PO (20:44)
[2019-06-20] MEDS ORDERED: ALLO300T2 PO (20:45)
[2019-06-21] VITALS: BP 128/85
[2019-06-21 04:00] VITALS: BP 123/96
[2019-06-21] MEDS: INSULIN LISPRO 100 UNITS/ML SUBCUT SCH ×4 (08:10→21:00)
[2019-06-21] MEDS: BLOOD SUGAR DIAGNOSTIC STRIP TEST SCH ×4 (08:37→21:00)
[2019-06-21] MEDS: APIXABAN 5 MG TABLET PO SCH ×2 (09:09→18:42)
[2019-06-21] MEDS: AMLODIPINE 5MG TABLET PO SCH ×2 (09:09→21:22)
[2019-06-21] MEDS: LEVETIRACETAM 500MG TABLET PO SCH ×2 (09:09→21:22)
[2019-06-21 12:00] VITALS: BP 112/86
[2019-06-21 16:00] VITALS: BP 106/78
[2019-06-21 20:00] VITALS: BP 135/95
[2019-06-22] VITALS: BP 119/71
[2019-06-22 04:00] VITALS: BP 133/94
[2019-06-22] MEDS: BLOOD SUGAR DIAGNOSTIC STRIP TEST SCH (06:50)
[2019-06-22 08:00] VITALS: BP 136/84
[2019-06-22] MEDS: INSULIN LISPRO 100 UNITS/ML SUBCUT SCH (08:10)
[2019-06-22] MEDS: LEVETIRACETAM 500MG TABLET PO SCH (10:01)
[2019-06-22] MEDS: AMLODIPINE 5MG TABLET PO SCH (10:01)
[2019-06-22] MEDS: APIXABAN 5 MG TABLET PO SCH (10:02)
[2019-06-22 12:04] VITALS: BP 136/81
== END 2019-06-22 13:25 | DRG 100 ==
LOC: ER 09:33 → 3WST 11:03 → EDBEDREQ 11:11 → ENRESERV 12:19 → 3WST 06-14 05:05 → 7WST 06-16 18:48
PROVIDERS: ADMIT Internal Medicine; ATTEND Internal Medicine
PROC: 4A023N7 Measurement of Cardiac Sampling and Pressure, Left Heart, Percutaneous Approach (ICD-10-PCS; principal; 2019-06-16)
PROC: B211YZZ Fluoroscopy of Multiple Coronary Arteries using Other Contrast (ICD-10-PCS; 2019-06-16)
PROC: B215YZZ Fluoroscopy of Left Heart using Other Contrast (ICD-10-PCS; 2019-06-16)
DX: G40.419 Other generalized epilepsy and epileptic syndromes, intractable, without status epilepticus (principal); I21.4 Non-ST elevation (NSTEMI) myocardial infarction; I50.43 Acute on chronic combined systolic (congestive) and diastolic (congestive) heart failure; I48.92 Unspecified atrial flutter; I48.19 Other persistent atrial fibrillation; I44.2 Atrioventricular block, complete; I51.0 Cardiac septal defect, acquired; I11.0 Hypertensive heart disease with heart failure; E11.9 Type 2 diabetes mellitus without complications; M10.9 Gout, unspecified; M19.90 Unspecified osteoarthritis, unspecified site; D69.6 Thrombocytopenia, unspecified; I49.5 Sick sinus syndrome; J32.0 Chronic maxillary sinusitis; I65.23 Occlusion and stenosis of bilateral carotid arteries; L92.8 Other granulomatous disorders of the skin and subcutaneous tissue; G93.89 Other specified disorders of brain; E78.5 Hyperlipidemia, unspecified; I25.5 Ischemic cardiomyopathy; I27.21 Secondary pulmonary arterial hypertension; I25.119 Atherosclerotic heart disease of native coronary artery with unspecified angina pectoris; S00.83XA Contusion of other part of head, initial encounter; W18.30XA Fall on same level, unspecified, initial encounter; Y93.89 Activity, other specified; Y92.89 Other specified places as the place of occurrence of the external cause; Y99.8 Other external cause status; Z79.01 Long term (current) use of anticoagulants; Z82.49 Family history of ischemic heart disease and other diseases of the circulatory system; Z86.73 Personal history of transient ischemic attack (TIA), and cerebral infarction without residual deficits; Z95.0 Presence of cardiac pacemaker; Z82.3 Family history of stroke; Z79.899 Other long term (current) drug therapy; Z79.82 Long term (current) use of aspirin
CPT/HCPCS: 36415; 36600; 70496; 71045; 78582; 80048; 80053; 80061; 80320; 82375; 82550; 82553; 82805; 82962; 83721; 83735; 84439; 84443; 84484; 85025; 92610; 93005; 93306; 93458; 96372; 96374; 96375; 97116; 97161; 97166; 97530; 97535; A9558; C1769; C1887; C1893; J0360; J1630; J1644; J1650; J1815; J1953; J2060; J2250; J2270; J3010; J3490; J7040; Q9967; G0480

== ENCOUNTER 2019-07-29 16:38 | Inpatient (IN) | payer OTHER ==
[~2019-07-29] VITALS: Ht 188 cm; Wt 83.9 kg
[~2019-07-29 16:38] MED LIST changes: -ASPI-1497 PO; +ATOR20TA65 MT; -ATROV IH; -AZEL137S7 NS; +FAMO-135 PO; +GABA-531 PO; +LEVE10006 MT; +NAPR-681 PO; +TAMS-11 PO
[2019-07-29] MEDS ORDERED: SODIUM CHLORIDE 0.9% 1,000 ML IV ONE (17:30)
[2019-07-29] MEDS ORDERED: LORAZEPAM 2MG/ML CPJ ONE (17:42)
[2019-07-29 17:45] LABS: BASOPHILS % 0.7 % (0.0-2.0); EOSINOPHILS % 2.9 % (0.0-5.0); HEMATOCRIT. 43.8 % (42.0-52.0); HEMOGLOBIN. 14.6 g/dL (14.0-18.0); LYMPHOCYTES % 16.6 % (20.0-50.0); MEAN CORPUSCULAR HEMOGLOBIN 32.7 pg (28.0-32.0); MEAN PLATELET VOLUME 9.9 fl (7.4-10.4); MONOCYTES % 7.9 % (2.0-8.0); NEUTROPHILS % 71.9 % (40.0-76.0); PLATELET 185 x1000/uL (130-400); RED BLOOD CELL COUNT 4.47 mill/uL (4.7-6.1); RED CELL DISTRIBUTION WIDTH 14.6 % (11.6-14.6)
[2019-07-29] MEDS ORDERED: LORAZEPAM 2MG/ML CPJ IV ONE (17:45)
[2019-07-29 17:47] LABS: CHLORIDE 104 mEq/L (98-107)
[2019-07-29 17:51] LABS: ETHANOL BLOOD < 10 mg/dL
[2019-07-29] MEDS ORDERED: ACETAMINOPHEN 650MG SUPP PR PRN (21:15)
[2019-07-29] MEDS ORDERED: DEXTROSE 50% WATER 50ML SYRINGE IV PRN (21:15)
[2019-07-29] MEDS ORDERED: ONDANSETRON HCL 4MG/2ML INJ IV PRN (21:15)
[2019-07-29] MEDS ORDERED: DIPHENHYDRAMINE 25MG CAPSULE PO PRN (21:15)
[2019-07-29] MEDS ORDERED: LORAZEPAM 2MG/ML CPJ IV PRN (21:15)
[2019-07-29] MEDS ORDERED: SODIUM CHLORIDE 0.9% 1,000 ML IV SCH (22:00)
[2019-07-29] MEDS ORDERED: LEVETIRACETAM 1000MG/100ML 100 ML IV NR (22:15)
[2019-07-30 01:23] LABS: CLARITY URINE CLEAR (CLEAR); COLOR URINE YELLOW (YELLOW); KETONES URINE TRACE (NEGATIVE); LEUKOCYTE ESTERASE URINE NEGATIVE (NEGATIVE); NITRITE URINE NEGATIVE (NEGATIVE); OCCULT BLOOD URINE NEGATIVE (NEGATIVE); PH URINE 5.5 (4.5-8.0); PROTEIN URINE 3+ (NEGATIVE); SPECIFIC GRAVITY URINE 1.026 (1.005-1.030)
[2019-07-30 01:39] LABS: *BARBITURATES SCREEN URINE NEGATIVE (NEGATIVE)
[2019-07-30 01:40] LABS: *AMPHETAMINES SCREEN URINE NEGATIVE (NEGATIVE); *BENZODIAZEPINES SCREEN URINE NEGATIVE (NEGATIVE); *COCAINE SCREEN URINE NEGATIVE (NEGATIVE); CANNABINOID URINE SCREEN NEGATIVE (NEGATIVE); METHADONE URINE SCREEN NEGATIVE (NEGATIVE); OPIATES URINE SCREEN NEGATIVE (NEGATIVE); PHENCYCLIDINE URINE SCREEN NEGATIVE (NEGATIVE)
[2019-07-30 03:43] VITALS: BP 140/85
[2019-07-30] MEDS: BLOOD SUGAR DIAGNOSTIC STRIP TEST SCH ×4 (07:34→21:00)
[2019-07-30] MEDS: INSULIN LISPRO 100 UNITS/ML SUBCUT SCH ×4 (07:35→21:00)
[2019-07-30 08:00] VITALS: BP 135/83
[2019-07-30] MEDS: LEVETIRACETAM 1,000 MG in SODIUM CHLORIDE 0.9% 100 ML IV SCH ×2 (11:29→22:58)
[2019-07-30] MEDS: ASPIRIN 81MG EC TABLET PO SCH (11:30)
[2019-07-30] MEDS: ENOXAPARIN 40MG/0.4ML SYR SUBCUT SCH (11:30)
[2019-07-30] MEDS: LAMOTRIGINE 25MG TABLET PO SCH (11:32)
[2019-07-30 12:00] VITALS: BP 129/80
[2019-07-30 16:00] VITALS: BP 124/81
[2019-07-30 20:00] VITALS: BP 145/91
[2019-07-30] MEDS: ATORVASTATIN CALCIUM 20MG TABLET PO SCH (22:14)
[2019-07-31] VITALS: BP 145/80
[2019-07-31 04:00] VITALS: BP 157/92
[2019-07-31 06:02] LABS: CHLORIDE 108 mEq/L (98-107)
[2019-07-31 06:06] LABS: BASOPHILS % 0.7 % (0.0-2.0); EOSINOPHILS % 3.5 % (0.0-5.0); HEMATOCRIT. 39.8 % (42.0-52.0); HEMOGLOBIN. 13.3 g/dL (14.0-18.0); LYMPHOCYTES % 11.7 % (20.0-50.0); MEAN CORPUSCULAR HEMOGLOBIN 32.7 pg (28.0-32.0); MEAN CORPUSCULAR VOLUME 98.1 fL (80.0-94.0); MONOCYTES % 7.2 % (2.0-8.0); NEUTROPHILS % 76.9 % (40.0-76.0); PLATELET 169 x1000/uL (130-400); RED BLOOD CELL COUNT 4.06 mill/uL (4.7-6.1); RED CELL DISTRIBUTION WIDTH 14.2 % (11.6-14.6)
[2019-07-31 06:10] LABS: PHOSPHORUS 2.9 mg/dL (2.5-4.9)
[2019-07-31] MEDS: BLOOD SUGAR DIAGNOSTIC STRIP TEST SCH ×4 (07:20→21:00)
[2019-07-31] MEDS: INSULIN LISPRO 100 UNITS/ML SUBCUT SCH ×4 (07:50→21:00)
[2019-07-31 08:33] VITALS: BP 148/98
[2019-07-31] MEDS: ASPIRIN 81MG EC TABLET PO SCH (09:24)
[2019-07-31] MEDS: LAMOTRIGINE 25MG TABLET PO SCH ×2 (09:24→18:50)
[2019-07-31] MEDS: ENOXAPARIN 40MG/0.4ML SYR SUBCUT SCH (09:25)
[2019-07-31] MEDS: LEVETIRACETAM 1,000 MG in SODIUM CHLORIDE 0.9% 100 ML IV SCH (11:26)
[2019-07-31 12:05] VITALS: BP 147/90
[2019-07-31 13:04] LABS: BG BASE EXCESS -0.6 mmol/L (-2.0-2.0); BG CARBOXYHEMOGLOBIN 0.9 % (0.5-1.5); BG DEOXYHEMOGLOBIN 8.5 % (0.0-5.0); BG FRACTION INSPIRED OXYGEN 21; BG HCO3 ACT 23.6 mmol/L (22.0-26.0); BG METHEMOGLOBIN 0.2 % (0.0-1.5); BG OXYGEN SATURATION 91.4 % (92.0-98.5); BG OXYHEMOGLOBIN 90.4 % (94.0-97.0); BG PCO2 37.5 mmHg (35.0-45.0); BG PH 7.416 (7.350-7.450); BG PO2 60.4 mmHg (75.0-100.0); BG SAMPLE SITE RIGHT RADIAL; BG TOTAL HEMOGLOBIN 13.8 g/dL (12.0-18.0); BG VENT MODE ROOM AIR
[2019-07-31] MEDS ORDERED: HYDRALAZINE 20MG/ML VIAL IV PRN (15:00)
[2019-07-31] MEDS ORDERED: LACTULOSE 20G/30ML UDC PO PRN (15:00)
[2019-07-31] MEDS ORDERED: HYDROCODONE/ACETAMINOPHEN 5/325MG TABLET PO PRN (15:00)
[2019-07-31] MEDS ORDERED: LORAZEPAM 2MG/ML CPJ IV PRN (15:15)
[2019-07-31 16:03] VITALS: BP 158/98
[2019-07-31 20:00] VITALS: BP 144/89
[2019-07-31] MEDS ORDERED: LEVETIRACETAM 1,000 MG in SODIUM CHLORIDE 0.9% 100 ML IV SCH (21:00)
[2019-07-31] MEDS: ATORVASTATIN CALCIUM 20MG TABLET PO SCH (21:24)
[2019-08-01] VITALS (7 sets, daily range): BP systolic 151–160; BP diastolic 79–103
[2019-08-01] MEDS: LEVETIRACETAM 1,000 MG in SODIUM CHLORIDE 0.9% 100 ML IV SCH ×3 (00:08→21:29)
[2019-08-01 06:18] LABS: BASOPHILS % 0.6 % (0.0-2.0); EOSINOPHILS % 3.8 % (0.0-5.0); HEMATOCRIT. 41.4 % (42.0-52.0); HEMOGLOBIN. 13.8 g/dL (14.0-18.0); LYMPHOCYTES % 12.5 % (20.0-50.0); MEAN CORPUSCULAR HEMOGLOBIN 32.9 pg (28.0-32.0); MEAN CORPUSCULAR VOLUME 98.8 fL (80.0-94.0); MEAN PLATELET VOLUME 9.7 fl (7.4-10.4); MONOCYTES % 7.7 % (2.0-8.0); NEUTROPHILS % 75.4 % (40.0-76.0); PLATELET 184 x1000/uL (130-400); RED BLOOD CELL COUNT 4.19 mill/uL (4.7-6.1); RED CELL DISTRIBUTION WIDTH 14.5 % (11.6-14.6)
[2019-08-01 06:44] LABS: CHLORIDE 107 mEq/L (98-107)
[2019-08-01] MEDS: BLOOD SUGAR DIAGNOSTIC STRIP TEST SCH ×4 (07:42→20:25)
[2019-08-01] MEDS: INSULIN LISPRO 100 UNITS/ML SUBCUT SCH ×4 (07:42→20:25)
[2019-08-01] MEDS ORDERED: LIDOCAINE HCL 1% 20ML VIAL (Pyxis) INJ ONE (07:48)
[2019-08-01] MEDS ORDERED: SODIUM BICARBONATE 4% (2.4MEQ) 5ML VIAL IV ONE (07:48)
[2019-08-01] MEDS: LAMOTRIGINE 25MG TABLET PO SCH ×2 (08:04→19:23)
[2019-08-01] MEDS: ENOXAPARIN 40MG/0.4ML SYR SUBCUT SCH (10:10)
[2019-08-01] MEDS: ASPIRIN 81MG EC TABLET PO SCH (10:10)
[2019-08-01 12:39] LABS: BG BASE EXCESS -0.2 mmol/L (-2.0-2.0); BG CARBOXYHEMOGLOBIN 0.7 % (0.5-1.5); BG DEOXYHEMOGLOBIN 10.9 % (0.0-5.0); BG HCO3 ACT 25.9 mmol/L (22.0-26.0); BG METHEMOGLOBIN 0.3 % (0.0-1.5); BG OXYHEMOGLOBIN 88.1 % (94.0-97.0); BG PCO2 47.4 mmHg (35.0-45.0); BG PH 7.355 (7.350-7.450); BG PO2 58.2 mmHg (75.0-100.0); BG SAMPLE SITE RIGHT BRACHIAL; BG TOTAL HEMOGLOBIN 14.5 g/dL (12.0-18.0); BG VENT MODE ROOM AIR
[2019-08-01] MEDS: AMLODIPINE 5MG TABLET PO SCH (13:12)
[2019-08-01] MEDS: PIPERACILLIN/TAZOBACTAM 3.375 G in DEXT 5% WATER 100 ML IV SCH ×2 (13:52→19:24)
[2019-08-01] MEDS: ATORVASTATIN CALCIUM 20MG TABLET PO SCH (20:51)
[2019-08-02 00:40] VITALS: BP 154/93
[2019-08-02] MEDS: PIPERACILLIN/TAZOBACTAM 3.375 G in DEXT 5% WATER 100 ML IV SCH ×3 (02:04→13:03)
[2019-08-02 04:00] VITALS: BP 154/96
[2019-08-02] MEDS: BLOOD SUGAR DIAGNOSTIC STRIP TEST SCH ×3 (06:55→17:15)
[2019-08-02 07:13] LABS: HEMATOCRIT. 47.4 % (42.0-52.0); HEMOGLOBIN. 15.9 g/dL (14.0-18.0); MEAN CORPUSCULAR HEMOGLOBIN 33.1 pg (28.0-32.0); MEAN CORPUSCULAR VOLUME 98.3 fL (80.0-94.0); MEAN PLATELET VOLUME 10.1 fl (7.4-10.4); PLATELET 171 x1000/uL (130-400); RED BLOOD CELL COUNT 4.82 mill/uL (4.7-6.1); RED CELL DISTRIBUTION WIDTH 14.5 % (11.6-14.6)
[2019-08-02 07:23] LABS: CHLORIDE 108 mEq/L (98-107)
[2019-08-02] MEDS: INSULIN LISPRO 100 UNITS/ML SUBCUT SCH ×3 (07:49→17:15)
[2019-08-02 08:00] VITALS: BP 148/101
[2019-08-02] MEDS: ASPIRIN 81MG EC TABLET PO SCH (08:36)
[2019-08-02] MEDS: ENOXAPARIN 40MG/0.4ML SYR SUBCUT SCH (08:36)
[2019-08-02] MEDS: LAMOTRIGINE 25MG TABLET PO SCH ×2 (08:36→17:26)
[2019-08-02] MEDS: AMLODIPINE 5MG TABLET PO SCH (08:36)
[2019-08-02] MEDS: LEVETIRACETAM 1,000 MG in SODIUM CHLORIDE 0.9% 100 ML IV SCH (08:41)
[2019-08-02 09:46] LABS: PLATELET ESTIMATE NORMAL
[2019-08-02] MEDS ORDERED: SODIUM CHLORIDE 0.45% 1,000 ML IV SCH (10:45)
[2019-08-02 11:52] LABS: BG BASE EXCESS 2.8 mmol/L (-2.0-2.0); BG CARBOXYHEMOGLOBIN 0.9 % (0.5-1.5); BG DEOXYHEMOGLOBIN 5.7 % (0.0-5.0); BG FRACTION INSPIRED OXYGEN 21; BG HCO3 ACT 26.9 mmol/L (22.0-26.0); BG METHEMOGLOBIN 0.3 % (0.0-1.5); BG OXYGEN SATURATION 94.2 % (92.0-98.5); BG OXYHEMOGLOBIN 93.1 % (94.0-97.0); BG PCO2 39.8 mmHg (35.0-45.0); BG PH 7.448 (7.350-7.450); BG PO2 67.1 mmHg (75.0-100.0); BG SAMPLE SITE RIGHT RADIAL; BG TOTAL HEMOGLOBIN 14.9 g/dL (12.0-18.0); BG VENT MODE ROOM AIR
[2019-08-02 12:00] VITALS: BP 144/94
[2019-08-02 16:00] VITALS: BP 142/89
[2019-08-02] MEDS ORDERED: CLON0.5T MT (16:09)
[2019-08-02] MEDS ORDERED: LAM25 PO (16:09)
[2019-08-02 16:14] VITALS: BP_SYST 142; BP_SYST 144; BP_DIAS 89; BP_DIAS 94
[2019-08-02] MEDS ORDERED: LEVETIRACETAM 500MG TABLET PO SCH (21:00)
== END 2019-08-02 17:45 | disposition home or self-care (01) | DRG 100 ==
LOC: ER 16:38 → 6WST 20:07 → ENRESERV 07-30 01:08
PROVIDERS: ADMIT Internal Medicine; ATTEND Internal Medicine
DX: G40.909 Epilepsy, unspecified, not intractable, without status epilepticus (principal); G93.41 Metabolic encephalopathy; I50.43 Acute on chronic combined systolic (congestive) and diastolic (congestive) heart failure; I69.354 Hemiplegia and hemiparesis following cerebral infarction affecting left non-dominant side; I48.20 Chronic atrial fibrillation, unspecified; I07.1 Rheumatic tricuspid insufficiency; I25.2 Old myocardial infarction; I11.0 Hypertensive heart disease with heart failure; E11.9 Type 2 diabetes mellitus without complications; I27.20 Pulmonary hypertension, unspecified; J32.0 Chronic maxillary sinusitis; Z95.0 Presence of cardiac pacemaker
CPT/HCPCS: 36415; 36600; 71045; 76700; 76937; 80048; 80053; 80305; 80320; 81003; 82140; 82375; 82542; 82805; 82962; 83036; 83735; 84100; 84145; 85025; 93005; 96360; 97163; 97530; 99291; C1725; J0360; J1650; J1953; J2060; J2543; J3490; J7030; J7050; J7060; G0480

== ENCOUNTER 2019-08-20 15:32 | Inpatient (IN) | payer OTHER ==
[~2019-08-20] VITALS: Ht 172.7 cm; Wt 108.1 kg
[~2019-08-20 15:32] MED LIST changes: +CLON0.5T MT; -FURO80TA3 PO; +LAM25 PO
[2019-08-20] MEDS ORDERED: LEVETIRACETAM 1000MG/100ML 100 ML IV ONE (16:00)
[2019-08-20] MEDS ORDERED: SODIUM CHLORIDE 0.9% 500 ML IV ONE (16:00)
[2019-08-20 18:19] LABS: CHLORIDE 106 mEq/L (98-107)
[2019-08-20 18:25] LABS: ETHANOL BLOOD < 10 mg/dL
[2019-08-20 18:32] LABS: BASOPHILS % 0.5 % (0.0-2.0); EOSINOPHILS % 3.4 % (0.0-5.0); HEMATOCRIT. 39.9 % (42.0-52.0); HEMOGLOBIN. 13.3 g/dL (14.0-18.0); LYMPHOCYTES % 12.5 % (20.0-50.0); MEAN CORPUSCULAR HEMOGLOBIN 32.5 pg (28.0-32.0); MEAN CORPUSCULAR VOLUME 97.8 fL (80.0-94.0); MEAN PLATELET VOLUME 10.4 fl (7.4-10.4); NEUTROPHILS % 75.6 % (40.0-76.0); PLATELET 153 x1000/uL (130-400); RED BLOOD CELL COUNT 4.08 mill/uL (4.7-6.1); RED CELL DISTRIBUTION WIDTH 15.2 % (11.6-14.6)
[2019-08-20] MEDS ORDERED: LABETALOL 5MG/ML SYR 20 MG/4 ML SYRINGE IV ONE (20:30)
[2019-08-21 02:49] LABS: CLARITY URINE CLEAR (CLEAR); COLOR URINE YELLOW (YELLOW); KETONES URINE NEGATIVE (NEGATIVE); LEUKOCYTE ESTERASE URINE NEGATIVE (NEGATIVE); NITRITE URINE NEGATIVE (NEGATIVE); OCCULT BLOOD URINE NEGATIVE (NEGATIVE); PROTEIN URINE 3+ (NEGATIVE); SPECIFIC GRAVITY URINE 1.019 (1.005-1.030)
[2019-08-21 03:08] LABS: *AMPHETAMINES SCREEN URINE NEGATIVE (NEGATIVE)
[2019-08-21 03:09] LABS: *BARBITURATES SCREEN URINE NEGATIVE (NEGATIVE); *BENZODIAZEPINES SCREEN URINE NEGATIVE (NEGATIVE); *COCAINE SCREEN URINE NEGATIVE (NEGATIVE); METHADONE URINE SCREEN NEGATIVE (NEGATIVE); OPIATES URINE SCREEN NEGATIVE (NEGATIVE); PHENCYCLIDINE URINE SCREEN NEGATIVE (NEGATIVE)
[2019-08-21 03:10] LABS: CANNABINOID URINE SCREEN PRESUMTIVE POSITIVE (NEGATIVE)
[2019-08-21 03:30] VITALS: BP 2/163
[2019-08-21] MEDS ORDERED: DEXTROSE 50% WATER 50ML SYRINGE IV PRN (04:00)
[2019-08-21 04:13] VITALS: BP 163/105
[2019-08-21] MEDS: NITROGLYCERIN OINT 1GM/INCH UDPKT TD SCH ×3 (06:30→17:54)
[2019-08-21] MEDS: BLOOD SUGAR DIAGNOSTIC STRIP TEST SCH ×4 (06:38→21:30)
[2019-08-21] MEDS: DEXT 5%/0.45% NACL 1000ML 1,000 ML IV SCH ×2 (06:38→14:26)
[2019-08-21] MEDS: INSULIN LISPRO 100 UNITS/ML SUBCUT SCH ×4 (06:40→21:00)
[2019-08-21] MEDS ORDERED: ENOXAPARIN 40MG/0.4ML SYR SUBCUT SCH (09:00)
[2019-08-21] MEDS ORDERED: ENOXAPARIN 30MG/0.3ML SYR SUBCUT SCH (09:00)
[2019-08-21] MEDS ORDERED: LAMOTRIGINE 25MG TABLET PO SCH (11:00)
[2019-08-21] MEDS: LEVETIRACETAM 500MG PREMIX 100 ML IV SCH ×3 (11:22→20:42)
[2019-08-21 12:00] VITALS: BP 161/95
[2019-08-21] MEDS ORDERED: LORAZEPAM 2MG/ML CPJ IV PRN (15:45)
[2019-08-21 16:00] VITALS: BP 159/100
[2019-08-21] MEDS ORDERED: APIXABAN 2.5 MG TABLET PO SCH (17:00)
[2019-08-21] MEDS: APIXABAN 5 MG TABLET PO SCH (17:54)
[2019-08-21 20:00] VITALS: BP 159/107
[2019-08-21] MEDS: LAMOTRIGINE 25MG TABLET PO SCH (20:42)
[2019-08-21] MEDS: CLONAZEPAM 0.5MG TABLET PO SCH (21:30)
[2019-08-22] VITALS (7 sets, daily range): BP systolic 128–166; BP diastolic 78–106
[2019-08-22] MEDS: NITROGLYCERIN OINT 1GM/INCH UDPKT TD SCH ×4 (00:40→17:23)
[2019-08-22] MEDS: BLOOD SUGAR DIAGNOSTIC STRIP TEST SCH ×4 (04:13→21:00)
[2019-08-22] MEDS: DEXT 5%/0.45% NACL 1000ML 1,000 ML IV SCH ×3 (04:20→15:57)
[2019-08-22 06:39] LABS: CHLORIDE 107 mEq/L (98-107)
[2019-08-22 06:47] LABS: HEMATOCRIT 39.3 % (42.0-52.0); MEAN CORPUSCULAR HEMOGLOBIN 32.2 pg (28.0-32.0); MEAN CORPUSCULAR VOLUME 97.6 fL (80.0-94.0); PLATELET 146 x1000/uL (130-400); RED BLOOD CELL COUNT 4.02 mill/uL (4.7-6.1); RED CELL DISTRIBUTION WIDTH 14.9 % (11.6-14.6)
[2019-08-22] MEDS: INSULIN LISPRO 100 UNITS/ML SUBCUT SCH ×4 (07:50→21:00)
[2019-08-22] MEDS: LEVETIRACETAM 500MG PREMIX 100 ML IV SCH ×2 (09:00→11:28)
[2019-08-22] MEDS: LAMOTRIGINE 25MG TABLET PO SCH (09:22)
[2019-08-22] MEDS: APIXABAN 5 MG TABLET PO SCH ×2 (09:22→17:00)
[2019-08-22 13:20] LABS: BG BASE EXCESS 1.9 mmol/L (-2.0-2.0); BG CARBOXYHEMOGLOBIN 0.9 % (0.5-1.5); BG HCO3 ACT 29.6 mmol/L (22.0-26.0); BG METHEMOGLOBIN 0.3 % (0.0-1.5); BG OXYGEN SATURATION 93.9 % (92.0-98.5); BG OXYHEMOGLOBIN 92.8 % (94.0-97.0); BG PCO2 60.2 mmHg (35.0-45.0); BG PO2 75.3 mmHg (75.0-100.0); BG SAMPLE SITE RIGHT BRACHIAL; BG TOTAL HEMOGLOBIN 13.8 g/dL (12.0-18.0); BG VENT MODE NASAL CANNULA
[2019-08-22] MEDS ORDERED: LIDOCAINE HCL/PF 1% 2ML VIAL ONE (13:36)
[2019-08-22] MEDS ORDERED: LORAZEPAM 2MG/ML CPJ IV PRN (15:45)
[2019-08-22 15:57] LABS: BG BASE EXCESS 2.2 mmol/L (-2.0-2.0); BG BILEVEL POS AIRWAY PRESSURE 15/5; BG CARBOXYHEMOGLOBIN 0.9 % (0.5-1.5); BG DEOXYHEMOGLOBIN 3.7 % (0.0-5.0); BG HCO3 ACT 30.1 mmol/L (22.0-26.0); BG METHEMOGLOBIN 0.2 % (0.0-1.5); BG OXYGEN SATURATION 96.3 % (92.0-98.5); BG OXYHEMOGLOBIN 95.2 % (94.0-97.0); BG PCO2 61.9 mmHg (35.0-45.0); BG PH 7.305 (7.350-7.450); BG PO2 91.7 mmHg (75.0-100.0); BG SAMPLE SITE RIGHT RADIAL; BG TOTAL HEMOGLOBIN 13.7 g/dL (12.0-18.0); BG VENT MODE MASK - BIPAP; BG VENT RATE 16 set
[2019-08-22 18:33] LABS: BG BASE EXCESS 4.3 mmol/L (-2.0-2.0); BG BILEVEL POS AIRWAY PRESSURE 18/5; BG CARBOXYHEMOGLOBIN 0.9 % (0.5-1.5); BG DEOXYHEMOGLOBIN 3.5 % (0.0-5.0); BG FRACTION INSPIRED OXYGEN 35; BG HCO3 ACT 32.7 mmol/L (22.0-26.0); BG METHEMOGLOBIN 0.2 % (0.0-1.5); BG OXYGEN SATURATION 96.5 % (92.0-98.5); BG OXYHEMOGLOBIN 95.4 % (94.0-97.0); BG PCO2 67.6 mmHg (35.0-45.0); BG PH 7.303 (7.350-7.450); BG PO2 91.6 mmHg (75.0-100.0); BG SAMPLE SITE RIGHT RADIAL; BG TOTAL HEMOGLOBIN 13.6 g/dL (12.0-18.0); BG VENT MODE MASK - BIPAP; BG VENT RATE 20 set
[2019-08-22] MEDS: CLONAZEPAM 0.5MG TABLET PO SCH (21:00)
[2019-08-22] MEDS ORDERED: LACTULOSE 20G/30ML UDC PR NR (23:45)
[2019-08-23] VITALS (11 sets, daily range): BP systolic 117–173; BP diastolic 57–118
[2019-08-23] MEDS ORDERED: LACTULOSE 20G/30ML UDC PO NR
[2019-08-23] MEDS: LEVETIRACETAM 500MG PREMIX 100 ML IV SCH ×3 (00:18→20:51)
[2019-08-23] MEDS: DEXT 5%/0.45% NACL 1000ML 1,000 ML IV SCH ×3 (01:48→16:00)
[2019-08-23] MEDS: NITROGLYCERIN OINT 1GM/INCH UDPKT TD SCH ×5 (01:57→23:53)
[2019-08-23] MEDS ORDERED: LACTULOSE 20G/30ML UDC PR SCH (02:45)
[2019-08-23] MEDS ORDERED: LABETALOL 5MG/ML SYR 20 MG/4 ML SYRINGE IV SCH (04:00)
[2019-08-23 06:02] LABS: CHLORIDE 108 mEq/L (98-107)
[2019-08-23 06:25] LABS: BASOPHILS % 0.7 % (0.0-2.0); EOSINOPHILS % 6.2 % (0.0-5.0); HEMATOCRIT. 42.5 % (42.0-52.0); HEMOGLOBIN. 13.9 g/dL (14.0-18.0); LYMPHOCYTES % 13.1 % (20.0-50.0); MEAN CORPUSCULAR VOLUME 98.1 fL (80.0-94.0); MEAN PLATELET VOLUME 9.6 fl (7.4-10.4); MONOCYTES % 7.3 % (2.0-8.0); NEUTROPHILS % 72.7 % (40.0-76.0); PLATELET 137 x1000/uL (130-400); RED BLOOD CELL COUNT 4.33 mill/uL (4.7-6.1); RED CELL DISTRIBUTION WIDTH 14.8 % (11.6-14.6)
[2019-08-23] MEDS: BLOOD SUGAR DIAGNOSTIC STRIP TEST SCH ×4 (06:27→21:03)
[2019-08-23] MEDS: INSULIN LISPRO 100 UNITS/ML SUBCUT SCH ×4 (06:28→21:00)
[2019-08-23 11:23] LABS: BG BASE EXCESS 1.9 mmol/L (-2.0-2.0); BG CARBOXYHEMOGLOBIN 0.3 % (0.5-1.5); BG DEOXYHEMOGLOBIN 2.7 % (0.0-5.0); BG FRACTION INSPIRED OXYGEN 30; BG HCO3 ACT 28.1 mmol/L (22.0-26.0); BG METHEMOGLOBIN 0.2 % (0.0-1.5); BG OXYGEN SATURATION 97.3 % (92.0-98.5); BG OXYHEMOGLOBIN 96.8 % (94.0-97.0); BG PCO2 50.1 mmHg (35.0-45.0); BG PH 7.366 (7.350-7.450); BG PO2 97.1 mmHg (75.0-100.0); BG SAMPLE SITE RIGHT RADIAL; BG TOTAL HEMOGLOBIN 13.4 g/dL (12.0-18.0); BG VENT MODE NASAL CANNULA
[2019-08-23] MEDS: APIXABAN 5 MG TABLET PO SCH ×2 (13:25→18:12)
[2019-08-23] MEDS: LORAZEPAM 2MG/ML CPJ IV PRN (18:11)
[2019-08-23] MEDS: CLONAZEPAM 0.5MG TABLET PO SCH (20:51)
[2019-08-23] MEDS: RISPERIDONE 0.5MG TABLET PO SCH (21:04)
[2019-08-23] MEDS: CLONIDINE 0.1MG TABLET PO PRN (22:22)
[2019-08-24] VITALS (12 sets, daily range): BP systolic 142–176; BP diastolic 84–113
[2019-08-24] MEDS: DEXT 5%/0.45% NACL 1000ML 1,000 ML IV SCH ×2 (00:01→12:02)
[2019-08-24] MEDS: BLOOD SUGAR DIAGNOSTIC STRIP TEST SCH ×4 (06:03→21:00)
[2019-08-24] MEDS: NITROGLYCERIN OINT 1GM/INCH UDPKT TD SCH ×4 (06:08→23:34)
[2019-08-24] MEDS: INSULIN LISPRO 100 UNITS/ML SUBCUT SCH ×4 (07:20→21:00)
[2019-08-24] MEDS: APIXABAN 5 MG TABLET PO SCH ×2 (08:23→17:30)
[2019-08-24] MEDS: LEVETIRACETAM 500MG PREMIX 100 ML IV SCH ×2 (09:36→20:58)
[2019-08-24] MEDS: RISPERIDONE 0.5MG TABLET PO SCH ×2 (09:36→20:58)
[2019-08-24 13:27] LABS: BG BASE EXCESS 2.4 mmol/L (-2.0-2.0); BG CARBOXYHEMOGLOBIN 0.6 % (0.5-1.5); BG DEOXYHEMOGLOBIN 8.4 % (0.0-5.0); BG HCO3 ACT 27.9 mmol/L (22.0-26.0); BG METHEMOGLOBIN 0.3 % (0.0-1.5); BG OXYGEN SATURATION 91.5 % (92.0-98.5); BG OXYHEMOGLOBIN 90.7 % (94.0-97.0); BG PCO2 46.8 mmHg (35.0-45.0); BG PH 7.393 (7.350-7.450); BG PO2 64.5 mmHg (75.0-100.0); BG SAMPLE SITE RIGHT RADIAL; BG TOTAL HEMOGLOBIN 13.2 g/dL (12.0-18.0); BG VENT MODE ROOM AIR
[2019-08-24] MEDS ORDERED: BISACODYL 10MG SUPP PR NR (13:30)
[2019-08-24 15:08] LABS: LAMOTIGINE (LAMICTAL) 2.5 ug/mL (2.0-20.0)
[2019-08-24] MEDS: METOCLOPRAMIDE HCL 10MG/2ML VIAL IV SCH ×2 (15:21→17:00)
[2019-08-24 17:06] LABS: LEVETIRACETAM / KEPPRA 27.5 ug/mL (10.0-40.0)
[2019-08-24] MEDS ORDERED: METOCLOPRAMIDE HCL 5MG TABLET PO SCH (18:00)
[2019-08-24] MEDS: LAMOTRIGINE 100MG TABLET PO SCH (22:13)
[2019-08-24] MEDS: CLONIDINE 0.1MG TABLET PO PRN (22:18)
[2019-08-25] VITALS (12 sets, daily range): BP systolic 148–168; BP diastolic 88–103
[2019-08-25] MEDS: NITROGLYCERIN OINT 1GM/INCH UDPKT TD SCH ×3 (05:26→17:35)
[2019-08-25] MEDS: DEXT 5%/0.45% NACL 1000ML 1,000 ML IV SCH (05:26)
[2019-08-25] MEDS: BLOOD SUGAR DIAGNOSTIC STRIP TEST SCH ×4 (05:37→21:11)
[2019-08-25 06:14] LABS: CHLORIDE 110 mEq/L (98-107)
[2019-08-25 06:37] LABS: HEMATOCRIT 36.8 % (42.0-52.0); HEMOGLOBIN 12.4 g/dL (14.0-18.0); MEAN CORPUSCULAR HEMOGLOBIN 32.5 pg (28.0-32.0); MEAN CORPUSCULAR VOLUME 96.7 fL (80.0-94.0); PLATELET 136 x1000/uL (130-400); RED CELL DISTRIBUTION WIDTH 15.1 % (11.6-14.6)
[2019-08-25] MEDS: INSULIN LISPRO 100 UNITS/ML SUBCUT SCH ×4 (07:20→21:00)
[2019-08-25] MEDS: APIXABAN 5 MG TABLET PO SCH ×3 (09:20→17:35)
[2019-08-25] MEDS: LEVETIRACETAM 500MG PREMIX 100 ML IV SCH ×2 (09:20→20:49)
[2019-08-25] MEDS: LAMOTRIGINE 100MG TABLET PO SCH ×3 (09:20→20:49)
[2019-08-25] MEDS: RISPERIDONE 0.5MG TABLET PO SCH ×2 (09:20→20:49)
[2019-08-25] MEDS: METOCLOPRAMIDE HCL 10MG/2ML VIAL IV SCH ×3 (09:20→17:35)
[2019-08-25] MEDS: LORAZEPAM 2MG/ML CPJ IV PRN (09:29)
[2019-08-25 12:31] LABS: BG BASE EXCESS 3.7 mmol/L (-2.0-2.0); BG CARBOXYHEMOGLOBIN 0.5 % (0.5-1.5); BG DEOXYHEMOGLOBIN 3.1 % (0.0-5.0); BG FRACTION INSPIRED OXYGEN 28; BG METHEMOGLOBIN 0.3 % (0.0-1.5); BG OXYGEN SATURATION 96.9 % (92.0-98.5); BG OXYHEMOGLOBIN 96.1 % (94.0-97.0); BG PCO2 52.7 mmHg (35.0-45.0); BG PH 7.373 (7.350-7.450); BG PO2 96.1 mmHg (75.0-100.0); BG SAMPLE SITE RIGHT RADIAL; BG VENT MODE NASAL CANNULA
[2019-08-25] MEDS: METHYLPREDNISOLONE SOD SUCC 40 MG/ML VIAL IV SCH (14:56)
[2019-08-25] MEDS ORDERED: HALOPERIDOL LACTATE 5MG/ML VIAL IM PRN (19:00)
[2019-08-26] VITALS (12 sets, daily range): BP systolic 138–183; BP diastolic 85–117
[2019-08-26] MEDS: LORAZEPAM 2MG/ML CPJ IV PRN (00:01)
[2019-08-26] MEDS: NITROGLYCERIN OINT 1GM/INCH UDPKT TD SCH ×5 (00:19→23:49)
[2019-08-26] MEDS: CLONIDINE 0.1MG TABLET PO PRN ×2 (02:50→19:55)
[2019-08-26] MEDS ORDERED: CLONIDINE 0.1MG TABLET PO ONE (06:15)
[2019-08-26] MEDS: BLOOD SUGAR DIAGNOSTIC STRIP TEST SCH ×4 (06:38→21:37)
[2019-08-26] MEDS: INSULIN LISPRO 100 UNITS/ML SUBCUT SCH ×4 (07:20→21:00)
[2019-08-26] MEDS: METOCLOPRAMIDE HCL 10MG/2ML VIAL IV SCH ×2 (09:29→17:30)
[2019-08-26] MEDS: RISPERIDONE 0.5MG TABLET PO SCH ×2 (09:29→21:36)
[2019-08-26] MEDS: METHYLPREDNISOLONE SOD SUCC 40 MG/ML VIAL IV SCH (09:29)
[2019-08-26] MEDS: APIXABAN 5 MG TABLET PO SCH ×2 (09:29→17:30)
[2019-08-26] MEDS: LEVETIRACETAM 500MG PREMIX 100 ML IV SCH ×2 (09:29→21:36)
[2019-08-26] MEDS: LAMOTRIGINE 100MG TABLET PO SCH ×2 (09:29→21:36)
[2019-08-26 09:45] LABS: HEMATOCRIT 38.1 % (42.0-52.0); HEMOGLOBIN 12.5 g/dL (14.0-18.0); MEAN CORPUSCULAR HEMOGLOBIN 32.1 pg (28.0-32.0); MEAN CORPUSCULAR VOLUME 97.6 fL (80.0-94.0); PLATELET 137 x1000/uL (130-400); RED CELL DISTRIBUTION WIDTH 14.9 % (11.6-14.6)
[2019-08-26 09:51] LABS: CHLORIDE 107 mEq/L (98-107)
[2019-08-27] VITALS (12 sets, daily range): BP systolic 106–169; BP diastolic 42–107
[2019-08-27] MEDS: LORAZEPAM 2MG/ML CPJ IV PRN ×2 (00:44→23:23)
[2019-08-27] MEDS: CLONIDINE 0.1MG TABLET PO PRN ×3 (02:46→20:52)
[2019-08-27] MEDS: NITROGLYCERIN OINT 1GM/INCH UDPKT TD SCH ×4 (05:47→23:23)
[2019-08-27] MEDS: BLOOD SUGAR DIAGNOSTIC STRIP TEST SCH ×4 (06:19→20:44)
[2019-08-27] MEDS: INSULIN LISPRO 100 UNITS/ML SUBCUT SCH ×4 (07:20→20:43)
[2019-08-27] MEDS: APIXABAN 5 MG TABLET PO SCH ×2 (08:04→18:18)
[2019-08-27] MEDS: METOCLOPRAMIDE HCL 10MG/2ML VIAL IV SCH ×2 (08:04→18:18)
[2019-08-27] MEDS: METHYLPREDNISOLONE SOD SUCC 40 MG/ML VIAL IV SCH (08:04)
[2019-08-27] MEDS: RISPERIDONE 0.5MG TABLET PO SCH ×2 (08:04→20:43)
[2019-08-27] MEDS: LAMOTRIGINE 100MG TABLET PO SCH ×2 (08:04→20:43)
[2019-08-27] MEDS: LEVETIRACETAM 500MG PREMIX 100 ML IV SCH ×2 (08:18→20:43)
[2019-08-27 10:05] LABS: HEMATOCRIT 39.3 % (42.0-52.0); MEAN CORPUSCULAR HEMOGLOBIN 32.1 pg (28.0-32.0); PLATELET 158 x1000/uL (130-400); RED BLOOD CELL COUNT 4.06 mill/uL (4.7-6.1); RED CELL DISTRIBUTION WIDTH 14.7 % (11.6-14.6)
[2019-08-27 10:11] LABS: CHLORIDE 107 mEq/L (98-107)
[2019-08-27] MEDS: SODIUM CHLORIDE 0.9% 1,000 ML IV SCH (12:20)
[2019-08-28] VITALS (12 sets, daily range): BP systolic 153–199; BP diastolic 75–109
[2019-08-28] MEDS: SODIUM CHLORIDE 0.9% 1,000 ML IV SCH ×2 (02:01→14:27)
[2019-08-28] MEDS: NITROGLYCERIN OINT 1GM/INCH UDPKT TD SCH ×3 (06:00→18:05)
[2019-08-28] MEDS: BLOOD SUGAR DIAGNOSTIC STRIP TEST SCH ×4 (06:25→21:11)
[2019-08-28] MEDS: INSULIN LISPRO 100 UNITS/ML SUBCUT SCH ×4 (07:20→21:00)
[2019-08-28] MEDS: LEVETIRACETAM 500MG PREMIX 100 ML IV SCH ×2 (09:00→21:11)
[2019-08-28] MEDS: METHYLPREDNISOLONE SOD SUCC 40 MG/ML VIAL IV SCH (09:35)
[2019-08-28] MEDS: METOCLOPRAMIDE HCL 10MG/2ML VIAL IV SCH ×2 (09:35→18:04)
[2019-08-28] MEDS: RISPERIDONE 0.5MG TABLET PO SCH ×2 (09:35→21:11)
[2019-08-28 09:36] LABS: BASOPHILS % 0.3 % (0.0-2.0); EOSINOPHILS % 1.5 % (0.0-5.0); HEMATOCRIT. 40.7 % (42.0-52.0); HEMOGLOBIN. 13.4 g/dL (14.0-18.0); LYMPHOCYTES % 12.1 % (20.0-50.0); MEAN CORPUSCULAR VOLUME 97.1 fL (80.0-94.0); MEAN PLATELET VOLUME 9.4 fl (7.4-10.4); MONOCYTES % 9.3 % (2.0-8.0); NEUTROPHILS % 76.8 % (40.0-76.0); PLATELET 147 x1000/uL (130-400); RED BLOOD CELL COUNT 4.19 mill/uL (4.7-6.1)
[2019-08-28] MEDS: LAMOTRIGINE 100MG TABLET PO SCH ×2 (09:36→21:11)
[2019-08-28] MEDS: APIXABAN 5 MG TABLET PO SCH ×2 (09:36→17:00)
[2019-08-28 10:05] LABS: CHLORIDE 107 mEq/L (98-107)
[2019-08-28] MEDS ORDERED: LACTULOSE 20G/30ML UDC PO NR (15:00)
[2019-08-28] MEDS: CLONIDINE 0.1MG TABLET PO PRN (21:41)
[2019-08-29] VITALS (13 sets, daily range): BP systolic 154–178; BP diastolic 72–117
[2019-08-29] MEDS: HYDRALAZINE 20MG/ML VIAL IV PRN ×3 (01:02→11:47)
[2019-08-29] MEDS: NITROGLYCERIN OINT 1GM/INCH UDPKT TD SCH ×5 (01:05→23:49)
[2019-08-29] MEDS: SODIUM CHLORIDE 0.9% 1,000 ML IV SCH ×2 (04:01→17:05)
[2019-08-29] MEDS: BLOOD SUGAR DIAGNOSTIC STRIP TEST SCH ×4 (06:34→20:37)
[2019-08-29] MEDS: INSULIN LISPRO 100 UNITS/ML SUBCUT SCH ×4 (07:20→20:37)
[2019-08-29] MEDS: LAMOTRIGINE 100MG TABLET PO SCH ×3 (08:49→23:48)
[2019-08-29] MEDS: LEVETIRACETAM 500MG PREMIX 100 ML IV SCH ×2 (08:49→20:36)
[2019-08-29] MEDS: METOCLOPRAMIDE HCL 10MG/2ML VIAL IV SCH ×2 (08:49→18:40)
[2019-08-29] MEDS: METHYLPREDNISOLONE SOD SUCC 40 MG/ML VIAL IV SCH (08:49)
[2019-08-29] MEDS: APIXABAN 5 MG TABLET PO SCH ×3 (08:49→18:29)
[2019-08-29] MEDS: RISPERIDONE 0.5MG TABLET PO SCH ×4 (08:50→23:49)
[2019-08-29 10:21] LABS: HEMATOCRIT. 41.2 % (42.0-52.0); HEMOGLOBIN. 13.5 g/dL (14.0-18.0); MEAN CORPUSCULAR HEMOGLOBIN 31.8 pg (28.0-32.0); MEAN CORPUSCULAR VOLUME 97.3 fL (80.0-94.0); MEAN PLATELET VOLUME 9.5 fl (7.4-10.4); PLATELET 161 x1000/uL (130-400); RED BLOOD CELL COUNT 4.23 mill/uL (4.7-6.1); RED CELL DISTRIBUTION WIDTH 15.3 % (11.6-14.6)
[2019-08-29 10:39] LABS: CHLORIDE 105 mEq/L (98-107)
[2019-08-29] MEDS ORDERED: LORAZEPAM 2MG/ML CPJ IV PRN (14:30)
[2019-08-29 16:37] LABS: PLATELET ESTIMATE NORMAL
[2019-08-29] MEDS: CLONIDINE 0.1MG TABLET PO PRN (20:37)
[2019-08-30] VITALS (15 sets, daily range): BP systolic 146–209; BP diastolic 79–121
[2019-08-30] MEDS: NITROGLYCERIN OINT 1GM/INCH UDPKT TD SCH ×3 (05:58→18:43)
[2019-08-30] MEDS: CLONIDINE 0.1MG TABLET PO PRN ×2 (05:59→15:11)
[2019-08-30] MEDS: BLOOD SUGAR DIAGNOSTIC STRIP TEST SCH ×4 (05:59→21:27)
[2019-08-30] MEDS: SODIUM CHLORIDE 0.9% 1,000 ML IV SCH ×2 (06:25→21:38)
[2019-08-30] MEDS: INSULIN LISPRO 100 UNITS/ML SUBCUT SCH ×4 (07:09→21:00)
[2019-08-30] MEDS: METHYLPREDNISOLONE SOD SUCC 40 MG/ML VIAL IV SCH (08:21)
[2019-08-30] MEDS: RISPERIDONE 0.5MG TABLET PO SCH ×2 (08:21→21:35)
[2019-08-30] MEDS: APIXABAN 5 MG TABLET PO SCH ×2 (08:21→17:00)
[2019-08-30] MEDS: LAMOTRIGINE 100MG TABLET PO SCH ×2 (08:21→21:35)
[2019-08-30] MEDS: METOCLOPRAMIDE HCL 10MG/2ML VIAL IV SCH ×2 (08:22→17:00)
[2019-08-30] MEDS: LEVETIRACETAM 500MG PREMIX 100 ML IV SCH ×2 (09:00→21:35)
[2019-08-30] MEDS: HYDRALAZINE 20MG/ML VIAL IV PRN (22:10)
[2019-08-31] VITALS (12 sets, daily range): BP systolic 150–195; BP diastolic 60–116
[2019-08-31] MEDS: NITROGLYCERIN OINT 1GM/INCH UDPKT TD SCH ×3 (00:58→12:19)
[2019-08-31] MEDS: BLOOD SUGAR DIAGNOSTIC STRIP TEST SCH ×2 (06:13→11:01)
[2019-08-31] MEDS: INSULIN LISPRO 100 UNITS/ML SUBCUT SCH ×2 (07:20→12:14)
[2019-08-31] MEDS: LEVETIRACETAM 500MG PREMIX 100 ML IV SCH (08:36)
[2019-08-31] MEDS: METOCLOPRAMIDE HCL 10MG/2ML VIAL IV SCH (08:36)
[2019-08-31] MEDS: RISPERIDONE 0.5MG TABLET PO SCH (08:36)
[2019-08-31] MEDS: METHYLPREDNISOLONE SOD SUCC 40 MG/ML VIAL IV SCH (08:36)
[2019-08-31] MEDS: SODIUM CHLORIDE 0.9% 1,000 ML IV SCH (08:36)
[2019-08-31] MEDS: APIXABAN 5 MG TABLET PO SCH (08:36)
[2019-08-31] MEDS: LAMOTRIGINE 100MG TABLET PO SCH (08:36)
== END 2019-08-31 19:55 | disposition hospice, home (50) | DRG 100 ==
LOC: ER 15:32 → 6WST 20:36 → ENRESERV 08-21 01:52 → 3WST 08-22 17:59
PROVIDERS: ADMIT Internal Medicine; ATTEND Internal Medicine
PROC: 5A09557 Assistance with Respiratory Ventilation, Greater than 96 Consecutive Hours, Continuous Positive Airway Pressure (ICD-10-PCS; principal; 2019-08-22)
DX: G40.909 Epilepsy, unspecified, not intractable, without status epilepticus (principal); I50.43 Acute on chronic combined systolic (congestive) and diastolic (congestive) heart failure; J96.02 Acute respiratory failure with hypercapnia; G93.40 Encephalopathy, unspecified; J44.1 Chronic obstructive pulmonary disease with (acute) exacerbation; K56.7 Ileus, unspecified; E72.20 Disorder of urea cycle metabolism, unspecified; E44.0 Moderate protein-calorie malnutrition; I25.10 Atherosclerotic heart disease of native coronary artery without angina pectoris; E11.9 Type 2 diabetes mellitus without complications; D64.9 Anemia, unspecified; I48.0 Paroxysmal atrial fibrillation; I27.20 Pulmonary hypertension, unspecified; I07.1 Rheumatic tricuspid insufficiency; I69.30 Unspecified sequelae of cerebral infarction; I25.2 Old myocardial infarction; Z95.0 Presence of cardiac pacemaker; Z79.899 Other long term (current) drug therapy; Z68.36 Body mass index [BMI] 36.0-36.9, adult
CPT/HCPCS: 36415; 36600; 71045; 74018; 80048; 80053; 80305; 80320; 81003; 82140; 82375; 82542; 82805; 82962; 83036; 84484; 85025; 85027; 92610; 93005; 93970; 94660; 95816; 97162; 99291; J0360; J1630; J1650; J1815; J1953; J2060; J2765; J2920; J3490; J7030; J7040; G0480